=== PATIENT | male | born 1965 | race Caucasian/White ===

== ENCOUNTER 2017-08-31 03:34 | Emergency (ER) | payer BC, OTHER ==
[2017-08-31] MEDS ORDERED: Ketorolac Tromethamine 60 MG/2 ML VIAL ONE (04:21)
[2017-08-31] MEDS ORDERED: Gabapentin 300 MG CAP PO SCH (04:30)
== END 2017-08-31 05:51 | disposition home or self-care (01) ==
LOC: ERS 03:34
DX: K08.89 Other specified disorders of teeth and supporting structures (principal); G47.30 Sleep apnea, unspecified; F17.220 Nicotine dependence, chewing tobacco, uncomplicated
CPT/HCPCS: 96372; 99406; J1885